=== PATIENT | female | born 1990 | race Caucasian/White ===

== ENCOUNTER 2019-06-15 12:54 | Emergency (ER) | payer SELFPAY ==
[2019-06-15 12:56] VITALS: BP 127/88; PULSE 77; RESP 17; TEMP 36.7; O2SAT 100; BMI 22.8
--- NOTE | 2019-06-15 13:26 | ED.VIS.GEN ---
History of Present Illness Chief Complaint: Laceration Informant: Patient Narrative: Patient presents to the ED with laceration to the base of her left thumb on the ventral aspect. She states she was cutting bread with a serrated knife prior to arrival. Tetanus status is unknown. She denies any decreased range of motion of her left hand or sensation. Past Medical History - Allergies and Home Meds Allergies/Adverse Reactions: Allergies No Known Allergies Allergy (Verified 06/15/19 12:56) Primary Care Physician: Yulisa Catalan MD [Primary Care Provider] - Fox Gongora MD [STAFF PHYSICIAN] - As Needed Smoking Status: Never smoker Review of Systems General: Denies: Chills, Fever, Sweats Eyes: Denies: Visual changes - bilaterally, Diplopia ENT: Denies: Rhinorrhea, Sore throat Cardiovascular: Denies: Chest pain, Palpitations Respiratory: Denies: Dyspnea, Cough, Dyspnea on exertion Gastrointestinal: Denies: Abdominal pain, Nausea, Vomiting, Diarrhea, Melena, Hematochezia Genitourinary: Denies: Dysuria, Hematuria, Frequency Musculoskeletal: Denies: Back pain, Extremity Pain Skin: Reports: - - Laceration Neurological: Denies: Headache, Weakness, Numbness Physical Exam Vital Signs/Narrative: Vital Signs Temp Pulse Resp BP Pulse Ox 06/15/19 12:56 98.1 F 77 17 127/88 H 100 General: Well nourished, Well developed, No Acute Distress Head: Normocephalic, Atraumatic Eyes: Perrl, EOMI ENT: Moist mucous membranes, No rhinorrhea Neck: Supple, Nontender Cardiovascular: Regular rate, Regular rhythm, No murmurs Respiratory: No distress, CTA bilaterally, Chest nontender Abdomen: Soft, Nontender, Nondistended, Normal bowel sounds Back: Nontender, Normal Inspection Extremities: No edema, - - 3.5 cm laceration on the ventral aspect of the left thumb overlying the MCP joint. It is approximately 5 mm deep. Slow bleeding. No evidence of foreign body. After irrigation, there appears to be no tendon involvement. Full range of motion of left hand. Full left thumb and strength. Normal two-point discrimination. Skin: Normal color, No rash, - - See above. Neurological: Alert, Oriented x3, Cranial nerves II-XII grossly intact, Normal Strength, Normal Sensation Psychological: Normal affect, Normal Mood Diagnostic/Tx/Re-eval - Medical Decision Making Patient presents to the ED with laceration to her left hand. After discussing risks and benefits of laceration repair, patient elected to have suture repair. Tetanus was updated. During suture repair, as I was able to visualize the flexor tendon, there was no tendon laceration. We will place the patient on a course of prophylactic Keflex in the event that she did man her tendon sheath. Patient was educated on proper wound care. She was educated on signs/symptoms to return to the ED. She was also given orthopedics to follow-up with as needed. She was provided discharge instructions and agreeable to plan. Procedure note: Verbal consent was obtained from the patient after reviewing risks and benefits. Wound was locally infiltrated with lidocaine without epinephrine, approximately 5 mL. Anesthesia was achieved. Wound was cleansed with chlorhexidine. Wound was irrigated with normal saline. Wound was explored through entire range of motion. Tendon is visualized, however there is no tendon laceration. Patient has full strength and mobility of her left thumb. There is no evidence of foreign body. Wound was closed with four 5-0 nylon sutures. Patient tolerated procedure well. Band-Aid was placed over the wound. Impression: Left hand laceration requiring suture repair. Disposition: Home stable ED Disposition - Plan for ED Patient: Disposition: Home or Assisted Living Diagnosis: Laceration of left hand Instructions: LACERATION, Hand Prescriptions: Cephalexin [Keflex] 500 mg PO TID #15 cap Prescription Printed Referrals: Yulisa Catalan MD [Primary Care Provider] - Fox Gongora MD [STAFF PHYSICIAN] - As Needed
[2019-06-15] MEDS: Diphth,Pertuss(Acell),Tet Vac 0.5 ML Vial IM (13:29)
[2019-06-15 14:19] VITALS: BP 121/83; PULSE 72; RESP 16; O2SAT 98
== END 2019-06-15 14:20 | disposition home or self-care (01) ==
PROVIDERS: Emergency Provider Physician Assistant; Family Provider Family Medicine; PCP Family Medicine
DX: S61.012A Laceration without foreign body of left thumb without damage to nail, initial encounter (principal); W26.0XXA Contact with knife, initial encounter; Y93.G1 Activity, food preparation and clean up
CPT/HCPCS: 12002; 90471; 90715; 99282